=== PATIENT | female | born 1985 | race Two or more races ===

== ENCOUNTER 2019-04-17 14:01 | Emergency (ER) | payer OTHER ==
[~2019-04-17] VITALS: Ht 160 cm; Wt 94.3 kg
--- NOTE | 2019-04-17 14:20 | NUR ---
Note omar in EDM - 04/17/19 at 1515 by [facility] ED Nurse Note: Patient actively vomiting into vomit back. Leatha WATKINS notified, received verbal order to start IV and and give 4mg zofran once IV.
[2019-04-17 14:26] VITALS: BP 111/70
--- NOTE | 2019-04-17 14:28 | NUR ---
ED Nurse Note: pt walked in to ER with mother due to abdominal pain 10/ and N/V/D since 0500 this morning. pt aao x4 but fatigued. calm and cooperative. skin clean and intact but pale. no cardiac or pulmonary distress noted at this time.
--- NOTE | 2019-04-17 14:38 | NUR ---
ED Nurse Note: Patient actively vomiting into vomit back. Leatha WATKINS notified, received verbal order to start IV and and give 4mg zofran once IV.
[2019-04-17 14:53] LABS: APPEARANCE,URINE CLEAR; BILIRUBIN, URINE NEGATIVE (NEGATIVE); GLUCOSE, URINE (UA) NEGATIVE (NEGATIVE); KETONES,URINE 4+ (NEGATIVE); LEUKOCYTE ESTERASE ,URINE 1+ (NEGATIVE); NITRITE,URINE NEGATIVE (NEGATIVE); PH,URINE 6 (4.5-8.0); PROTEIN,URINE 2+ (NEGATIVE); UROBILINOGEN,URINE NORMAL MG/DL (0.0-1.0)
[2019-04-17 14:56] LABS: COLOR,URINE YELLOW
--- NOTE | 2019-04-17 15:05 | NUR ---
ED Nurse Note: urine and blood sample sent down to lab
[2019-04-17 15:33] LABS: ANION GAP 14 mmol/L (5-15); BLOOD UREA NITROGEN 18 mg/dL (7-18); CALCIUM 9.2 MG/DL (8.5-10.1); CARBON DIOXIDE 22 MMOL/L (21-32); CHLORIDE 104 MMOL/L (98-107); CREATININE 0.7 MG/DL (0.55-1.30); POTASSIUM 4.4 MMOL/L (3.5-5.1); SODIUM 140 MMOL/L (136-145)
[2019-04-17 15:35] LABS: HEMATOCRIT 49.5 % (37.0-47.0); MEAN CORPUSCULAR VOLUME 93 FL (80-99); PLATELET COUNT 337 K/UL (150-450); RED BLOOD COUNT 5.32 M/UL (4.20-5.40); RED CELL DISTRIBUTION WIDTH 11.2 % (11.6-14.8)
[2019-04-17 15:37] LABS: ALANINE AMINOTRANSFERASE 28 U/L (12-78); ALBUMIN 4.2 G/DL (3.4-5.0); ALBUMIN/GLOBULIN RATIO 0.9 (1.0-2.7); ALKALINE PHOSPHATASE 64 U/L (46-116); ASPARTATE AMINO TRANSFERASE 26 U/L (15-37); BILIRUBIN,TOTAL 0.6 MG/DL (0.2-1.0)
[2019-04-17] MEDS ORDERED: Mylanta II UD 30ml ORAL ONE (15:45)
[2019-04-17] MEDS ORDERED: Dicyclomine HCl 10mg/5ml oral soln ORAL ONE (15:45)
[2019-04-17] MEDS ORDERED: Lidocaine 2% Visc 15ml soln ORAL ONE (15:45)
--- NOTE | 2019-04-17 16:10 | NUR ---
ED Nurse Note: Patient tolerating fluids well. No n/v. Able to do drink clear liquids and hold them down.
--- NOTE | 2019-04-17 16:12 | Emergency Room Report ---
History of Present Illness General Chief Complaint: Abdominal Pain Source: Patient Present Illness HPI 34-year-old female presents to the emergency department complaining of acute onset of 10 out of 10 severity abdominal pain with persistent vomiting and diarrhea since 5:00 this morning. Patient reports history of IBS, cholecystectomy and pancreatitis due to obstructing stone in the past. Patient denies suspicion of she denies abdominal tenderness at this time she reports her pain is intermittent and cramping in nature usually surrounding episodes of vomiting or loose bowel movement. She denies blood in the vomit or stool. She denies black tarry stools. Patient reports her friend has similar symptoms who ate dinner with her last night. Patient denies fevers she reports chills and cold sweats intermittently. She reports episodes of dizziness after vomiting. She reports she has been attempting to stay hydrated with water and Gatorade however she is unable to keep anything down. She denies chest pain, shortness of breath, headache, back pain, dysuria, hematuria or urinary frequency. Denies NSAID use and denies cannabinoid use. Denies any other symptoms at this time. Allergies: Uncoded Allergies: AMOXACILIN (Allergy, Unknown, 04/17/19) Patient History Past Medical History: see triage record Past Surgical History: none Pertinent Family History: none Last Menstrual Period: Mar 30, 2019 Now: No Reviewed Nursing Documentation: PMH: Agreed; PSxH: Agreed Nursing Documentation-PMH Past Medical History: No Stated History Review of Systems All Other Systems: negative except mentioned in HPI Physical Exam Vital Signs Date Time Temp Pulse Resp B/P (MAP) Pulse Ox O2 Delivery O2 Flow Rate FiO2 04/17/19 14:07 98.2 87 19 111/70 (84) 99 Room Air Sp02 EP Interpretation: reviewed, normal General Appearance: no apparent distress, alert, GCS 15, non-toxic Head: normocephalic, atraumatic Eyes: bilateral eye normal inspection, bilateral eye PERRL ENT: hearing grossly normal, normal voice Neck: full range of motion Respiratory: lungs clear, normal breath sounds, speaking full sentences Cardiovascular #1: regular rate, rhythm Gastrointestinal: normal bowel sounds - Hyperactive BS in all 4 quadrants, non tender, soft, non-distended, no guarding Rectal: deferred Genitourinary: normal inspection, no CVA tenderness Musculoskeletal: back normal, normal range of motion, gait/station normal, non- tender Neurologic: alert, motor strength/tone normal, oriented x3, sensory intact, responsive, speech normal Psychiatric: judgement/insight normal Skin: no rash, normal color, normal inspection Lymphatic: no adenopathy Medical Decision Making PA Attestation Dr. Harrell Is my supervising Physician whom patient management has been discussed with. Diagnostic Impression: Primary Impression: Combined abdominal pain, vomiting, and diarrhea ER Course 34-year-old female presents to the emergency department complaining of acute onset of 10 out of 10 severity abdominal pain with persistent vomiting and diarrhea since 5:00 this morning. Patient reports history of IBS, cholecystectomy and pancreatitis due to obstructing stone in the past. Patient denies suspicion of she denies abdominal tenderness at this time she reports her pain is intermittent and cramping in nature usually surrounding episodes of vomiting or loose bowel movement. She denies blood in the vomit or stool. She denies black tarry stools. Patient reports her friend has similar symptoms who ate dinner with her last night. Patient denies fevers she reports chills and cold sweats intermittently. She reports episodes of dizziness after vomiting. She reports she has been attempting to stay hydrated with water and Gatorade however she is unable to keep anything down. She denies chest pain, shortness of breath, headache, back pain, dysuria, hematuria or urinary frequency. Denies NSAID use and denies cannabinoid use. Denies any other symptoms at this time. Ddx considered but are not limited to GE, colitis, acute appendicitis, SBO, Cyclical Vomiting secondary to THC, or Vital signs: pt. is afebrile, H&PE are most consistent with GE most likely viral in etiology, no evidence to suggest acute abdomen on physical exam. ORDERS: -Urine Hcg: Negative -CBC: WBC 14k -- most likely reactive -CMP: WNL -Lipase: WNL -UA: Most indicative of contamination: presence of equal amounts of bacteria and squamous cells, no elevation in inflammatory markers, nitrite negative. ED INTERVENTIONS: -1000 NS iv hydration, -Zofran 4mg IV ( pt. vomited the ODT ) - Pepcid IV 20mg - GI Cocktail After above interventions this patient successfully completed oral fluid challenge without nausea or vomiting. DISCHARGE: At this time pt. is stable for d/c to home. Will provide printed patient care instructions, and any necessary prescriptions. Care plan and follow up instructions have been discussed with the patient prior to discharge. Labs Test 04/17/19 14:22 04/17/19 14:55 Urine Color Yellow Urine Appearance Clear Urine pH 6 (4.5-8.0) Urine Specific [place] 1.015 (1.005-1.035) Urine Protein 2+ (NEGATIVE) Urine Glucose (UA) Negative (NEGATIVE) Urine Ketones 4+ (NEGATIVE) Urine Blood 1+ (NEGATIVE) Urine Nitrite Negative (NEGATIVE) Urine Bilirubin Negative (NEGATIVE) Urine Urobilinogen Normal MG/DL (0.0-1.0) Urine Leukocyte Esterase 1+ (NEGATIVE) Urine RBC 0-2 /HPF (0 - 2) Urine WBC 2-4 /HPF (0 - 2) Urine Squamous Epithelial Cells Moderate /LPF (NONE/OCC) Urine Bacteria Few /HPF (NONE) Urine Mucus Many /LPF (NONE/OCC) Urine HCG, Qualitative Negative (NEGATIVE) White Blood Count 14.0 K/UL (4.8-10.8) Red Blood Count 5.32 M/UL (4.20-5.40) Hemoglobin 17.0 G/DL (12.0-16.0) Hematocrit 49.5 % (37.0-47.0) Mean Corpuscular Volume 93 FL (80-99) Mean Corpuscular Hemoglobin 31.9 PG (27.0-31.0) Mean Corpuscular Hemoglobin Concent 34.3 G/DL (32.0-36.0) Red Cell Distribution Width 11.2 % (11.6-14.8) Platelet Count 337 K/UL (150-450) Mean Platelet Volume 5.8 FL (6.5-10.1) Neutrophils (%) (Auto) % (45.0-75.0) Lymphocytes (%) (Auto) % (20.0-45.0) Monocytes (%) (Auto) % (1.0-10.0) Eosinophils (%) (Auto) % (0.0-3.0) Basophils (%) (Auto) % (0.0-2.0) Sodium Level 140 MMOL/L (136-145) Potassium Level 4.4 MMOL/L (3.5-5.1) Chloride Level 104 MMOL/L (98-107) Carbon Dioxide Level 22 MMOL/L (21-32) Anion Gap 14 mmol/L (5-15) Blood Urea Nitrogen 18 mg/dL (7-18) Creatinine 0.7 MG/DL (0.55-1.30) Estimat Glomerular Filtration Rate > 60 mL/min (>60) Glucose Level 109 MG/DL (74-106) Calcium Level 9.2 MG/DL (8.5-10.1) Total Bilirubin 0.6 MG/DL (0.2-1.0) Aspartate Amino Transf (AST/SGOT) 26 U/L (15-37) Alanine Aminotransferase (ALT/SGPT) 28 U/L (12-78) Alkaline Phosphatase 64 U/L (46-116) Total Protein 8.7 G/DL (6.4-8.2) Albumin 4.2 G/DL (3.4-5.0) Globulin 4.5 g/dL Albumin/Globulin Ratio 0.9 (1.0-2.7) Lipase 92 U/L (73-393) Last Vital Signs Date Time Temp Pulse Resp B/P (MAP) Pulse Ox O2 Delivery O2 Flow Rate FiO2 04/17/19 14:26 87 19 Room Air 04/17/19 14:26 98.2 111/70 99 Disposition: HOME, SELF-CARE Condition: Stable Scripts Mag Hydrox/Aluminum Hyd/Simeth (Mylanta Maximum Strength Liq) 355 Ml Oral.susp 10 ML PO Q6HR, #355 ML Prov: Leatha Orr 04/17/19 Famotidine* (Pepcid 20mg tablet*) 20 Mg Tablet 20 MG ORAL TWICE A DAY for 7 Days, #14 TAB 0 Refills Prov: Leatha Orr 04/17/19 Ondansetron Odt* (ZOFRAN ODT*) 4 Mg Tab.rapdis 4 MG BC EVERY 6 HOURS PRN for Nausea & Vomiting, #12 TAB 0 Refills Prov: Leatha Orr 04/17/19 Dicyclomine Hcl* (DICYCLOMINE HCL*) 10 Mg Capsule 10 MG ORAL TID, #10 CAP Prov: Leatha Orr 04/17/19 Referrals: [facility],REFERRING (PCP) Patient Instructions: Food Choices to Help Relieve Diarrhea, Adult, Food Poisoning, Nausea and Vomiting, Adult, [id number] Additional Instructions: Take medications as directed. Follow up with a Primary Care Provider in 3-5 days, even if your symptoms have resolved. Return sooner to ED if new symptoms occur, or current symptoms become worse. - Please note that this Emergency Department Report was dictated using [employer] tech technology software, occasionally this can lead to erroneous entry secondary to interpretation by the dictation equipment. Leatha Orr Apr 17, 2019 16:12
[2019-04-17] MEDS ORDERED: DICYCLOMINE HCL10 MG ORAL (16:50)
[2019-04-17] MEDS ORDERED: FAMOTIDINE20 MG ORAL (16:50)
[2019-04-17] MEDS ORDERED: ONDANSETRON ODT4 MG BC (16:50)
[2019-04-17] MEDS ORDERED: MYLANTA MAXIMU355 ML PO (16:50)
[2019-04-17 17:00] VITALS: BP 118/76
--- NOTE | 2019-04-17 17:00 | NUR ---
ER DISCHARGE NOTE: Patient cleared for DC by Leatha WATKINS, pt AxO x 4, walks with steady gait. ID band and IV removed. Patient took all belongings. Verbalized understanding of DC instructions.
== END 2019-04-17 17:00 | disposition home or self-care (01) ==
LOC: EMR 14:26
DX: R10.9 Unspecified abdominal pain (principal); R11.10 Vomiting, unspecified; R19.7 Diarrhea, unspecified; Z90.49 Acquired absence of other specified parts of digestive tract; R42 Dizziness and giddiness; Z88.0 Allergy status to penicillin
CPT/HCPCS: 36415; 80053; 81003; 81025; 83690; 85007; 85025; 96361; 96374; 96375; 99284; J2405; J7030; S0028

== ENCOUNTER 2019-06-22 13:10 | Emergency (ER) | payer OTHER ==
[~2019-06-22] VITALS: Ht 160 cm; Wt 93.4 kg
--- NOTE | 2019-06-22 12:54 | NUR ---
ED Nurse Note: pt stated she just wanted to chck temp. No other illness or S/Sx . pt temp was 98.4
[2019-06-22 13:10] VITALS: BP 122/70
[~2019-06-22 13:10] MED LIST: DICYCLOMINE HCL10 MG ORAL; FAMOTIDINE20 MG ORAL; MYLANTA MAXIMU355 ML PO; ONDANSETRON ODT4 MG BC
[2019-06-22] MEDS ORDERED: TYLENOL EXTRA500 MG ORAL (14:13)
--- NOTE | 2019-06-22 14:13 | Emergency Room Report ---
History of Present Illness General Chief Complaint: Pain Source: Patient Present Illness HPI 34-year-old female with no significant past medical history, no recent travel history, no cough or congestion here complaining of feeling feverish last night however did not have a thermometer at home. Wants to have a temperature check. Denies coming contact with any confirmed positive cases of covid 19. Is sitting comfortably with stable vital signs. Has not taken medication for symptom relief. Denies URI symptoms, UTI symptoms, abdominal pain. Denies . COVID-19 risk:Travel to affect: No Has patient experienced giron: No Allergies: Uncoded Allergies: AMOXACILIN (Allergy, Unknown, 04/17/19) Patient History Past Medical History: see triage record Past Surgical History: none Pertinent Family History: none Last Menstrual Period: na Now: No Immunizations: UTD Reviewed Nursing Documentation: PMH: Agreed; PSxH: Agreed Nursing Documentation-PMH Past Medical History: No Stated History Review of Systems All Other Systems: negative except mentioned in HPI Physical Exam Vital Signs Date Time Temp Pulse Resp B/P (MAP) Pulse Ox O2 Delivery O2 Flow Rate FiO2 06/22/19 12:53 98.4 70 16 122/70 (87) 98 Room Air Sp02 EP Interpretation: reviewed, normal General Appearance: no apparent distress, alert, GCS 15, non-toxic Head: normocephalic, atraumatic Eyes: bilateral eye normal inspection, bilateral eye PERRL ENT: hearing grossly normal, normal pharynx, no angioedema, normal voice Neck: full range of motion, supple, no meningismus, supple/symm/no masses Respiratory: chest non-tender, lungs clear, normal breath sounds, no rhonchi, no respiratory distress, no wheezing, speaking full sentences Cardiovascular #1: regular rate, rhythm, no edema, no murmur Gastrointestinal: normal bowel sounds, non tender, soft, non-distended, no guarding, no rebound Rectal: deferred Genitourinary: no CVA tenderness Musculoskeletal: back normal, normal range of motion, gait/station normal, non- tender Neurologic: alert, motor strength/tone normal, oriented x3, sensory intact, responsive, speech normal Psychiatric: judgement/insight normal, memory normal, mood/affect normal, no suicidal/homicidal ideation Skin: no rash Lymphatic: no adenopathy Medical Decision Making Diagnostic Impression: Primary Impression: URI (upper respiratory infection) ER Course 34-year-old female with no significant past medical history, no recent travel history, no cough or congestion here complaining of feeling feverish last night however did not have a thermometer at home. Wants to have a temperature check. Denies coming contact with any confirmed positive cases of covid 19. Is sitting comfortably with stable vital signs. Has not taken medication for symptom relief. Denies URI symptoms, UTI symptoms, abdominal pain. Denies . Ddx considered but are not limited to: Coronavirus, strep pharyngitis, URI, tonsillitis, peritonsillar abscess, influneza Vital signs: are WNL, pt. is afebrile H&PE are most consistent with: URI ORDERS: Tylenol ED INTERVENTIONS: None required at this time. DISCHARGE: At this time pt. is stable for d/c to home. Will provide printed patient care instructions, and any necessary prescriptions. Care plan and follow up instructions have been discussed with the patient prior to discharge. Take medication as directed, follow-up with your primary doctor, you need to stay home for self quarantine due to Covid 19 precautions for 14 days Last Vital Signs Date Time Temp Pulse Resp B/P (MAP) Pulse Ox O2 Delivery O2 Flow Rate FiO2 06/22/19 13:10 98.4 80 16 122/70 98 Room Air Disposition: HOME, SELF-CARE Condition: Stable Scripts Acetaminophen* (TYLENOL EXTRA STRENGTH*) 500 Mg Tablet 500 MG ORAL Q8H PRN for Prn Headache/Temp > 101, #30 TAB 0 Refills Prov: Gustavo Peña 06/22/19 Patient Instructions: Upper Respiratory Infection, Adult, [id number] Additional Instructions: Take medication as directed, follow-up with your primary doctor, you need to stay home for self quarantine due to Covid 19 precautions for 14 days Gustavo Peña Jun 22, 2019 14:13
[2019-06-22 14:28] VITALS: BP 120/74
--- NOTE | 2019-06-22 14:28 | NUR ---
ER DISCHARGE NOTE: Patient is cleared to be discharged per ERMD, pt is aox4, on room air, with stable vital signs. pt was given dc and prescription instructions, pt was able to verbalize understanding, pt id band removed without complications. pt is able to ambulate with steady gait. pt took all belongings.
== END 2019-06-22 14:28 | disposition home or self-care (01) ==
LOC: EDBD 13:10 → EMR 13:25
DX: J06.9 Acute upper respiratory infection, unspecified (principal); Z88.8 Allergy status to other drugs, medicaments and biological substances
CPT/HCPCS: 99281